=== PATIENT | male | born 1970 | race Caucasian/White ===

== ENCOUNTER → 2024-11-23 14:05 | Outpatient (REF) | payer BC, SELFPAY | LOC: HWRCS 14:05 | PROVIDERS: ATTENDING PHYSICIAN Internal Medicine Cardiovascular Disease; FAMILY PHYSICIAN Family Medicine | DX: I48.0 Paroxysmal atrial fibrillation (principal) | CPT/HCPCS: 93306 ==

== ENCOUNTER 2024-12-20 06:19 | Day surgery (SDC) | payer BC, SELFPAY ==
[2024-12-20] VITALS (9 sets, daily range): BP systolic 122–154; BP diastolic 65–86; BMI 30.6
[2024-12-20] MEDS: TYLENOL 1000 MG PO (10:45)
[2024-12-20] MEDS: NORMOSOL-R/PLASMALYTE-A 1000 IV (10:51)
--- NOTE | 2024-12-20 11:24 | HP.FOC2 ---
Focused History & Physical
Chief Complaint
HPI:
Chief Complaint: Umbilical
HPI / Indication for Planned Procedure: This is a 54-year-old male who presents with a symptomatic umbilical hernia. Will plan for a robotic umbilical hernia repair with mesh.
Relevant Past Medical History: Negative
Relevant Social History: Negative
Relevant Family History: Negative
Relevant Past Surgical History: Negative
Review of Systems
Review of Pertinent Systems: All Systems Negative
Medication
See Medication form for detailed medications: Yes
Medication List (including Herbals & OTC):
ascorbic acid (vitamin C) 1,000 mg tablet,extended release (Vitamin C ER) 1,000 mg PO Q12H 12/16/24
aspirin 81 mg tablet,delayed release 81 mg PO DAILY 12/16/24
cholecalciferol (vitamin D3) 25 mcg (1,000 unit) tablet (Vitamin D3) 25 mcg PO PRN PRN psoriasis 12/16/24
lisinopril 20 mg-hydrochlorothiazide 12.5 mg tablet 1 tab PO DAILY 12/16/24
loratadine 10 mg tablet 10 mg PO DAILY 12/16/24
metoprolol succinate 25 mg tablet,extended release 24 hr 25 mg PO DAILY 12/16/24
metoprolol succinate 25 mg tablet,extended release 24 hr 25 mg PO PRN PRN intermitten AFib 12/16/24
omega 1-jun-ghb-fish oil 900 mg-1,400 mg capsule,delayed release 2 cap PO DAILY 12/16/24
Medications Reviewed: Yes
Allergies and Reactions
Patient has Allergies: Yes
Noted Allergies and Reactions:
Allergy/AdvReac Type Severity Reaction Status Date / Time
amoxicillin [From Augmentin] Allergy diarrhea Verified 12/20/24 10:36
clavulanic acid Allergy diarrhea Verified 12/20/24 10:36
[From Augmentin]
pollen extracts Allergy seasonal Verified 12/20/24 10:36
allergies
Pertinent Physical Exam
All Other Systems: Negative
Head/Neck: Normal
Diagnosis / Assessment
This is a 54-year-old male who presents with a symptomatic umbilical hernia.
Plan / Procedure
Will plan for a robotic umbilical hernia repair with mesh.
Anesthesia/Sedation to be done by Anesthesia Provider: Yes
--- NOTE | 2024-12-20 13:41 | W.IMMPOSTOP ---
Surgical Immed Post Op Note
-
Primary Surgeon: Alan Ritter MD
Assisting Surgeon: None
Pre-op Diagnosis: Umbilical hernia
Post-op Diagnosis: Same
Procedure Performed: Robotic umbilical hernia repair with mesh
Anesthesia Type: General
Specimen / Cultures: None
Estimated Blood Loss: 3 cc
Complications: None
Operative Findings: 2 cm umbilical hernia closed with 0 V-Loc 180 suture and then reinforced with a 9 cm round Bard soft uncoated polypropylene mesh placed in the preperitoneal space.
--- NOTE | 2024-12-20 13:43 | OR.RPT ---
Operative Report
Operative Report
Patient Name: Lyndon Bess
: 03/15/1962
Date of Operation: 12/20/2024
Preoperative Diagnosis: Umbilical hernia
Postoperative Diagnosis: Same
Procedure(s):
Robotic umbilical hernia repair with mesh (VÍCTOR approach)
Surgeon(s):
Dr. Ritter
Digital Librarian(s):
None
Anesthesia: General
Estimated Blood Loss: 3 cc
Urine Output: None
Drains/Lines/Implants:
9 cm round Bard soft mesh
Specimens:
None
HPI/Surgical Indications:
This is a 54-year-old male who was seen in my office for a symptomatic umbilical bulge and diagnosed with a reducible umbilical hernia. Risks/Benefits/Alternatives were discussed at length, and the patient agreed to proceed with surgery.
Findings:
2 cm umbilical hernia containing preperitoneal fat. The defect was closed with 0 V-Loc 180 suture and this was reinforced with a 9 cm round Bard soft uncoated polypropylene mesh in the preperitoneal space.
Procedure Description:
The patient was brought to the Operating Room and placed in the supine position with the arms tucked. IV antibiotics were infused and Venodyne stockings placed. Following uneventful induction of general endotracheal anesthesia, an orogastric tube
was placed. The abdomen was prepped and draped in the usual sterile fashion. The abdomen was entered using a Veress technique which required 1 pass, pneumoperitoneum to 12 mmHg was obtained without difficulty. An 8mm trochar was passed through the
abdominal wall roughly 20 cm laterally from the defect in the left upper quadrant, we then confirmed that no inadvertent injury was made while passing the trocar or Veress needle. We then placed two additional 8 mm ports in the left lower quadrant.
Bilateral tap blocks were performed. The robot was docked. We then introduced our prograsper through the inferior/left hand port and a monopolar scissors through the superior port. We then turned our attention to the hernia which had no
intra-abdominal contents. We then began taking a flap down roughly 5 cm away from the defect and roughly 10 cm in length taking care to stay in the pretransversalis plane. The preperitoneal fat was taken down off of the posterior rectus sheath
both superior and inferior to the hernia defect such that we were able to get our 'volcano sign'. We then worked on reducing the defect which contained preperitoneal fat and continued our dissection out laterally for an additional 6 to 7 cm. Once
our flap was created we introduced a ruler and a 0 V-Loc 180. The main hernia defect measured 2 cm. The pocket measured 10 x 10 cm. I had my assistant professor of surgery cut a 9 cm round piece of Bard soft mesh marked with 0 Vicryl suture at the center, as I closed
the umbilical defect. The mesh was then sutured to the posterior rectus sheath in 2 spots with 2-0 vircyls to ensure good apposition. A 2-0 Monocryl was introduced which was used to close our flap. The entire mesh was excluded none was visible
through heart flap. All sutures were removed. The robot was undocked. The ports were removed under direct visualization and pneumoperitoneum was evacuated. The port sites were closed with 4-0 Monocryl followed by Dermabond. Counts were correct
and overall, the patient tolerated the procedure well and was taken to the Recovery Room postoperatively in stable condition.
I was the attending physician and performed the procedure with no assistance. I was present for all portions of the case.
Alan Ritter MD
--- NOTE | 2024-12-21 13:51 | W.SUR.PREOP ---
Pre-Operative Surgical Note
-
I have examined this patient prior to the performance of the scheduled procedure.
The patient's condition is unchanged from the time of the current History and
Physical and the patient is able to undergo the scheduled procedure.
== END 2024-12-20 15:05 | disposition home or self-care (01) ==
LOC: SDS 06:19
PROVIDERS: ATTENDING PHYSICIAN Surgery
DX: K42.9 Umbilical hernia without obstruction or gangrene (principal)
CPT/HCPCS: 49593; C1781

== ENCOUNTER 2025-03-01 05:51 | Day surgery (SDC) | payer BC, SELFPAY ==
[2025-02-14 09:37] VITALS: BMI 30.6
[2025-02-14 10:05] LABS: Hematocrit 44.8 % (39.0-52.0); Hemoglobin 16.1 g/dL (13.0-18.0); Mean Corp Hgb Conc. 35.9 g/dL (33.0-37.0); Mean Corpuscular Volume 91.6 fL (80.0-94.0); Nucleated Red Blood Cells % 0 % (-); Platelet Count 130 10^3/uL (130-400); Red Cell Dist. Width 12.1 % (11.5-14.5)
[2025-02-14 10:14] LABS: INR 1.10; PT 14.5 Sec (11.4-14.6)
[2025-02-14 10:21] LABS: ALT (SGPT) 116 U/L (0-50); AST (SGOT) 79 U/L (17-59); Albumin 4.6 g/dl (3.5-5.0); Alkaline Phosphatase 49 U/L (38-126); Blood Urea Nitrogen 25 mg/dl (9-20); Calcium 9.7 mg/dl (8.4-10.2); Carbon Dioxide 28 mmol/L (22-30); Chloride 102 mmol/L (98-107); Estimated Creatinine Clearance 101 ml/min; Glucose 121 mg/dl (70-99); Magnesium 1.9 mg/dl (1.6-2.3); Potassium 4.5 mmol/L (3.5-5.1); Sodium 138 mmol/L (135-145); Total Protein 7.6 g/dl (6.3-8.2); eGFR > 60.00
[2025-03-01] VITALS (21 sets, daily range): BP systolic 97–151; BP diastolic 51–97; BMI 30.4
--- NOTE | 2025-03-01 07:32 | ITS.CL.ABL ---
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
Ablation
Procedure Report:
Primary Teacher Education Instructor: Dr Aurelio Haynes
Procedure Date: 03/01/2025
Patient History:
Patient is a pleasant 54-year-old male with a past medical history significant for hypertension, hyperlipidemia, and symptomatic paroxysmal atrial fibrillation.
See H&P for complete details.
Indication:
Symptomatic paroxysmal atrial fibrillation
Arrhythmia Specific History:
Prior Medical Therapies for Rate and Rhythm Control:
X Beta-andres
[ ] Calcium channel-andres
[ ] Amiodarone
[ ] Dronederone
[ ] Sotalol
[ ] Flecainide
[ ] Dofetilide
[ ] Options limited by bradycardia
[ ] Options limited by comorbid renal disease
Prior Procedural Therapies for AF/AFL:
[ ] Cardioversion
[ ] Pulmonary Vein Isolation
[ ] Posterior Wall Isolation
[ ] Additional lines (Specify)
[ ] Surgical [place]-MAZE or PVI (Specify)
Procedure Performed:
X AF ablation procedure (58443) -- includes LA/CS pacing, trans-septal, 3D mapping, + ICE
[ ] +IV drug (99291)
[ ] +Other Arrhythmia (66218)
[ ] +Other AF Line/ablation (42493)
Risks and expected recovery has been explained in detail. Alternative options have been explored, and in a shared-decision making fashion we have decided that this was the most appropriate procedure.
Method
NPO status confirmed. Grounding pad applied. Defibrillator pads applied. Continuous surface ECG, pulse oximetry, and blood pressure were monitored. Procedure was performed under general anesthesia, with anesthesia services.
Both groins were clipped, prepped with Chloraprep, and draped in sterile fashion. Time out was called. Local anesthesia administered with bupivacaine. The right femoral vein was accessed for catheter placement, using ultrasound guidance (images
saved to record), micro-puncture needle/wire, and modified seldinger technique. 3 sheaths were placed. The following catheters were used:
[ ] Tacticath SE (D/F Curve) ablation catheter
X Viewflex 9Fr ICE catheter
X Inquiry decapolar 6Fr diagnostic catheter
[ ] CRD Hex 6Fr
X FlexCath Contour 10 Fr with PulseSelect PFA Catheter
X Advisor HD Grid Mapping Catheter, SE
[ ] Acuson AcuNav 8 Fr ICE catheter
[ ]Other: [ ]
Intracardiac ultrasound (ICE) was carefully advanced into the right atrium to guide sheath placement over a J-wire, catheter placement, guide trans-septal puncture, identify potential complications, identify anatomic structures and ensure proper
contact between ablation catheter and tissue.
Heparin was given prior to trans-septal puncture. Heparin was given to achieve and maintain a target ACT of 300-400 seconds throughout the procedure.
Trans-septal access was performed under ICE guidance. The trans-septal puncture was performed with a SafeSept wire through a Brockenbrough needle assembly through the steerable sheath. The wire was visualized as it entered the LSPV and system
advanced under ICE guidance and fluoroscopy into the LA. The Brockenbrough needle assembly, SafeSept wire and sheath dilator were removed under negative pressure. LA pressure was measured and recorded.
ICE and 3D mapping was performed to identify relevant cardiac structures. A careful 3D map was created to assess for regions of low-voltage and abnormal electrogram signals using HD grid mapping catheter and PulseSelect catheter. Additional mapping
was performed as outlined below.
Prior to ablation, glycopyrrolate was provided. PulseSelect catheter was advanced over J-wire to the ostium of each vein. Pulmonary vein isolation was performed with ostial and antral lesions in a circumferential manner. Contact was visualized via
EAM, ICE, fluoroscopy, and EGM signals.
Following completion of ablation lesions, a post-ablation voltage/activation map was performed in sinus rhythm. Entrance and exit block were confirmed for each vein.
Catheter and sheath were removed from the left atrium and post-ablation intracardiac echo evaluation was consistent with pre-ablation with no changes and no pericardial effusion and there is no left atrial thrombus or left ventricle thrombus seen.
Electrophysiology study was performed. Hemostasis was obtained with figure of 8 stitch for each groin and with manual pressure. Protamine was used for reversal.
Estimated Blood Loss
5 mL
Complications
None
Fluoroscopy: 1.7 minutes; 6.97 mGy; DAP 0.928
LA Pressure: 10 mmHg
Baseline Intervals:
Rhythm: SR
WA: 163 ms
QRS: 94 ms
QT: 372 ms
QTc: 409 ms
Post-Procedure Intervals:
WA: 134 ms
QRS: 99 ms
QT: 382 ms
QTc: 400 ms
AVWB: 360 ms
AVNERP: 600/310 ms
AERP: 600/250 ms
Recommendations
- Bedrest with straight-leg precautions as ordered
- Anticipate same day discharge if patient meeting clinical metrics
- Resume home medications as indicated
- Ok to resume anticoagulation tonight if patient and groin sites stable
- PPI daily for 30 days
- Plan for follow-up in office as scheduled
Stone Ngo, , FACC, RS
Clinical Cardiac Undercar Specialist
cc: Dr Aurelio Haynes; Dr Bashir Lowery
[2025-03-01 08:45] LABS: ACT-LR - POC 297 Seconds (116-155)
[2025-03-01 09:02] LABS: ACT-LR - POC 308 Seconds (116-155)
[2025-03-01 09:20] LABS: ACT-LR - POC 371 Seconds (116-155)
[2025-03-01 09:40] LABS: ACT-LR - POC 358 Seconds (116-155)
[2025-03-01 09:48] LABS: ACT-LR - POC 163 Seconds (116-155)
--- NOTE | 2025-03-01 14:37 | W.PN.UPDATE ---
Update Note
Progress Note Update
54 yo WM s/p PVI (same day) He denies cp, sob, lonnie diet, voiding, amb w/o dizziness, EKG SR occ PVC's, R fem site c/d/i no HT< soft. He will resume Eliquis tonight. We will add PPI for 30 days. Activity restrictions reviewed. He will f/u
[facility] in 3 mo. He is for d/c home after 245p if groin stable.
== END 2025-03-01 14:45 | disposition home or self-care (01) ==
LOC: CATH 05:51
PROVIDERS: ATTENDING PHYSICIAN Internal Medicine Cardiovascular Disease; FAMILY PHYSICIAN Family Medicine; OTHER PHYSICIAN Internal Medicine Cardiovascular Disease
DX: I48.0 Paroxysmal atrial fibrillation (principal); E78.5 Hyperlipidemia, unspecified; E66.9 Obesity, unspecified; G47.33 Obstructive sleep apnea (adult) (pediatric); I10 Essential (primary) hypertension; Z68.30 Body mass index [BMI] 30.0-30.9, adult; Z79.899 Other long term (current) drug therapy; I49.8 Other specified cardiac arrhythmias; Z88.0 Allergy status to penicillin; Z98.890 Other specified postprocedural states
CPT/HCPCS: C1732; C1730; C1733; C1769; C1894; 36415; 75572; 80053; 83735; 85025; 85347; 85610; 86850; 86900; 86901; 93005; 93656; C1766; Q9967